=== PATIENT | female | born 1980 | race Caucasian/White ===

== ENCOUNTER 2016-12-29 11:28 | Day surgery (SDC) | payer OTHER ==
[~2016-12-29] VITALS: Ht 162.6 cm; Wt 79.3 kg
[~2016-12-29 11:28] MED LIST: SYNTHROID PO
[2016-12-29 12:15] VITALS: Ht 162.6 cm; Wt 79.3 kg
[2016-12-29 13:01] VITALS: BP 102/59; PULSE 78; RESP 18
[2016-12-29] MEDS ORDERED: MIDAZOLAM 1 MG/ML 2 ML INJ ONE ×2 (13:32)
[2016-12-29] MEDS ORDERED: FENTAnyl 50 MCG/ML VIAL ONE (13:32)
[2016-12-29 13:43] VITALS: BP 95/58; PULSE 72; RESP 18
--- NOTE | 2016-12-30 05:25 | GILP ---
DATE OF PROCEDURE: PREOPERATIVE DIAGNOSIS: Abdominal pain and unexplained diarrhea. PROCEDURES DONE: Colonoscopy, ileoscopy and biopsy and culture. DESCRIPTION OF PROCEDURE: The patient was put in left lateral decubitus after obtaining informed co nsent. The patient was sedated with 3 mg IV Versed and 100 mcg of fentanyl, very carefully advanced Olympus video colonoscope after rectal exam all the way to the terminal ileum. Terminal ileum is n ormal. No evidence of Crohn's disease and fluid was collected in the cecum for C and N, ova and par asite and slowly withdrawn. Cecum, ascending colon, transverse colon, descending colon, sigmoid col on normal. In the rectum, very mild proctitis noted. This was biopsied. This may be prep induced but however, biopsies were done. FINAL IMPRESSION: 1. Normal colonoscopy except for mild proctitis. 2. Normal ileoscopy. 3. Await for culture report, ova and parasite report, biopsy report. 4. Follow up as outpatient in 2 weeks. Dictated By: MANUELITO GALEANO Conf#: [id number] DID#: [id number]
== END 2016-12-29 15:14 | disposition home or self-care (01) ==
LOC: GIL 11:28
PROVIDERS: ATTEND Internal Medicine
DX: K62.89 Other specified diseases of anus and rectum (principal)
CPT/HCPCS: 45378; 84703; 87045; 87177; 88305; J2250; J3010; Z7610